=== PATIENT | female | born 1960 | race Hispanic/Latino ===

== ENCOUNTER 2025-01-13 15:19 | Emergency (ER) | payer MEDICARE, MEDICAID, SELFPAY ==
[2025-01-13 15:22] VITALS: BP 124/76; PULSE 74; RESP 16; TEMP 36.4; O2SAT 93; BMI 23.0
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
--- NOTE | 2025-01-13 15:54 | RAD_ITS ---
PROCEDURE: TIBIA FIBULA 2 VIEWS 01/13/2025 REASON FOR EXAM: INJURY/PAIN TECHNIQUE: 2 view(s) of the left tibia and fibula. COMPARISON: None FINDINGS: No acute fracture or dislocation. Ankle mortise and imaged knee joint are maintained. No significant soft tissue swelling. Tiny plantar calcaneal enthesophyte. RAD/Tibia & Fibula 2 Views IMPRESSION: No acute findings. Reading Location: [facility]
--- NOTE | 2025-01-13 15:54 | CT_ITS ---
PROCEDURE: SOFT TISSUE NECK WITH CONTRAST 01/13/2025 REASON FOR EXAM: NECK PAIN TECHNIQUE: CT of the soft tissues of the neck from the orbits to the upper mediastinum with intravenous contrast. CONTRAST: Omnipaque 350 VOLUME: 70 mL Not Provided Gauge IV One or more dose reduction techniques were used (e.g., Automated exposure control, adjustment of the mA and/or kV according to patient size, use of iterative reconstruction technique). COMPARISON: None FINDINGS: Lymph nodes: No cervical lymphadenopathy by size, number or morphologic criteria. Small nonspecific lymph nodes are scattered throughout the neck. Aerodigestive tract: The oral cavity is partially obscured by artifact from dental amalgam. The nasal cavities, naso-oropharynx, pharyngeal mucosal space, laryngeal structures and infraglottic trachea are within normal limits. Major salivary glands: Within normal limits. Thyroid gland: Status post thyroidectomy. Moderate amount of fluid and gas within the thyroidectomy bed. Additional fluid collection which measures 3.3 x 1.0 x 4.1 cm anterior to the thyroidectomy bed, likely represents a postoperative seroma. There is mild surrounding soft tissue stranding and skin thickening. Carotid space: Patent bilateral extracranial carotid and jugular systems. Intracranial contents: Imaged portions within normal limits. Paranasal sinuses, middle ears, mastoids: Clear. Orbits: Within normal limits. Bones: No suspicious osseous lesions in the imaged calvarium, skull base and spine. Normal cervicothoracic alignment. No significant spondylotic changes. Temporomandibular joints are maintained. Lungs: Emphysema within the imaged lung apices.. CT/Soft Tissue Neck WITH Contrast IMPRESSION: 1. No acute findings in the neck. 2. Postoperative changes total thyroidectomy with gas and moderate amount of fl uid within and anterior to the thyroidectomy bed, likely evolving postoperative seromas/hematomas. Reading Location: [facility]
[2025-01-13 16:16] LABS: Absolute Lymphocyte Count 3.01 X10^3/uL (0.83-4.51); Absolute Neutrophil Count 7.2 X10^3/uL (2.0-7.7); Basophil# 0.07 X10^3/uL; Basophil% 0.6 % (0-1); Eosinophil# 0.24 X10^3/uL; Eosinophils% 2.1 % (0-5); Hematocrit 43.9 % (37-47); Hemoglobin 14.4 g/dL (12.0-15.0); Lymphocyte # 3.01 X10^3/ul (0.83-4.51); Lymphocyte % 25.8 % (19-41); Mean Corp Hgb Conc 32.8 g/dL (32-36); Mean Corpuscular Hgb 28.9 pg (27.0-32.0); Monocyte# 1.06 X10^3/uL; Monocyte% 9.1 % (0-10); NRBC Flagged by Analyzer 0 % (0-5); Neutrophil # 7.21 X10^3/uL (2.7-7.7); Neutrophil % 61.8 % (47-70); Platelet Count 341 K/mm3 (150-450); RBC Distribution Width SD 45.2 fl (35.1-43.9); Red Blood Count 4.99 M/mm3 (4.2-5.4); White Blood Count 11.7 K/mm3 (4.4-11.0)
[2025-01-13 16:21] VITALS: BP 122/77; PULSE 74; RESP 16; O2SAT 98
--- NOTE | 2025-01-13 16:25 | RAD_ITS ---
PROCEDURE: WRIST MIN 3 VIEWS 01/13/2025 REASON FOR EXAM: INJURY/PAIN TECHNIQUE: 3 view(s) of the right wrist COMPARISON: None FINDINGS: No acute fracture or dislocation. Joint spaces are maintained. No significant soft tissue swelling. No radiopaque foreign body. RAD/Wrist min 3 Views IMPRESSION: No acute findings. Reading Location: [facility]
[2025-01-13] MEDS: Morphine 4 MG/ML Syringe IV (16:44)
[2025-01-13 16:47] LABS: Anion Gap 13 (5-15); BUN 16 mg/dL (4-19); BUN/Creat Ratio 18.3 RATIO (10-20); Calcium,Total 9.4 mg/dL (7.6-11.0); Carbon Dioxide 21.2 mmol/L (21.0-32.0); Chloride 106 mmol/L (98-108); Creatinine, Serum 0.85 mg/dL (0.70-1.20); EST Glomerular Filtration Rate 77 (>60); Estimated Creatinine Clearance 55.31 ml/min (50-250); Glucose 119 mg/dL (70-99); Potassium 3.8 mmol/L (3.3-5.1); Sodium Level 140 mmol/L (133-145)
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
[2025-01-13 18:06] VITALS: BP 114/98; PULSE 64; PULSE 65; RESP 16; TEMP 36.3; O2SAT 94; O2SAT 95
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
== END 2025-01-13 18:10 | disposition home or self-care (01) ==
PROVIDERS: Emergency Provider Emergency Medicine; Visit Provider Emergency Medicine
DX: S19.9XXA Unspecified injury of neck, initial encounter (principal); S80.12XA Contusion of left lower leg, initial encounter; S60.211A Contusion of right wrist, initial encounter; I25.10 Atherosclerotic heart disease of native coronary artery without angina pectoris; Z79.82 Long term (current) use of aspirin; Z79.899 Other long term (current) drug therapy; Z79.890 Hormone replacement therapy; Y04.8XXA Assault by other bodily force, initial encounter
CPT/HCPCS: 70491; 73110; 73590; 80048; 85025; 96374; 99284; Q9967; A4216